=== PATIENT | female | born 1960 | race Caucasian/White ===

== ENCOUNTER 2021-11-13 01:36 | Observation (INO) ==
[2021-11-13] MEDS ORDERED: Ondansetron 4 MG/2 ML VIAL IVP PRN (04:53)
[2021-11-13] MEDS ORDERED: Naloxone 0.4 MG/ML INJ IVP PRN (04:53)
[2021-11-13] MEDS ORDERED: Melatonin 3 MG TABLET PO PRN (04:53)
[2021-11-13] MEDS ORDERED: *HR* HYDROcodone/Acet 5/325 mg TABLET PO PRN (04:53)
[2021-11-13] MEDS ORDERED: Acetaminophen 325 MG TABLET PO PRN (04:53)
[2021-11-13] MEDS ORDERED: *HR* Heparin 5,000 UNIT/ML VIAL IVP PRN ×2 (04:57)
[2021-11-13] MEDS ORDERED: Perflutren Lipid Microsphere 1.3 ML in 0.9 % Sodium Chloride 8.7 ML IVP PRN (04:58)
[2021-11-13] MEDS ORDERED: Heparin 25,000UNIT/250ML 1/2NS 25,000 UNIT/250 ML IV.SOLN IVC SCH (05:00)
[2021-11-13] MEDS ORDERED: Acetaminophen/Butalbital/CaffeineTABLET PO PRN (05:01)
[2021-11-13] MEDS ORDERED: Morphine Sulfate 2 MG/ML SYRINGE IVP ONE (05:01)
[2021-11-13] MEDS ORDERED: Dextrose 4 GM Chewable Tablets PO PRN ×2 (05:02)
[2021-11-13] MEDS ORDERED: D5% in Water 1,000 ML IVC PRN (05:02)
[2021-11-13] MEDS ORDERED: *HR* Dextrose 50 % in Water (Syg) 50 ML SYRINGE IVP PRN (05:02)
[2021-11-13] MEDS ORDERED: Metoclopramide 10 MG/2 ML VIAL IVP ONE (05:15)
[2021-11-13] MEDS ORDERED: Ketorolac 30 MG/ML VIAL IVP ONE (05:15)
[2021-11-13] MEDS ORDERED: NIFEdipine XL (24 HR) 60 MG TAB.ER.24 PO SCH (05:15)
[2021-11-13] MEDS ORDERED: Ipratropium/Albuterol Neb 3 ML IH PRN (05:17)
[2021-11-13] MEDS ORDERED: Dexamethasone Sodium Phos/PF 10 MG/ML VIAL IVP ONE (05:30)
[2021-11-13 05:48] LABS: Basophils % 0.4 %; Eosinophils # 0.1 K/mcL (0.0-0.6); Eosinophils % 1.3 %; Hematocrit 42.6 % (35.3-44.9); Hemoglobin 14.7 g/dL (11.5-15.4); Immature Granulocytes % 0.3 % (0-4); Lymphocytes # 1.4 K/mcL (0.6-4.6); Lymphocytes % 20.4 %; Mean Corpuscular HGB Conc 34.5 g/dL (31.6-35.5); Mean Corpuscular Hemoglobin 30.7 pg (28.0-33.3); Mean Corpuscular Volume 88.9 fL (83.0-100.0); Monocytes # 0.4 K/mcL (0.0-1.3); Monocytes % 5.7 %; Neutrophils # 4.9 K/mcL (1.6-8.9); Platelet Count 182 K/mcL (140-400); Red Blood Count 4.79 M/mcL (3.82-4.97); Red Cell Distribution Width 13.4 % (11.5-14.5); Segmented Neutrophils % 71.9 %; White Blood Count 6.9 K/mcL (4.3-11.1)
[2021-11-13 05:55] LABS: INR 1.1; Prothrombin Time 12.4 Seconds (9.4-12.1)
[2021-11-13 05:58] LABS: Activated Partial Thrombo Time 31.2 Seconds (26.0-36.0)
[2021-11-13 07:33] LABS: Chol/HDL Ratio 3.9 (0-4.9)
[2021-11-13] MEDS ORDERED: carvediloL 6.25 MG TABLET PO SCH (08:00)
[2021-11-13 08:18] LABS: Alanine Aminotransferase 14 Units/L (7-52); Albumin 4.3 g/dL (3.5-5.7); Albumin/Globulin Ratio 1.9 (1.1-2.2); Alkaline Phosphatase 60 Units/L (34-104); Aspartate Amino Transferase 17 Units/L (13-39); BUN/Creatinine Ratio 14 (6-26); Bilirubin,Total 0.6 mg/dL (0.3-1.0); Blood Urea Nitrogen 11 mg/dL (8-23); Calcium 9.2 mg/dL (8.6-10.3); Carbon Dioxide 26 mEq/L (23-29); Chloride 102 mEq/L (98-107); Globulin 2.3 g/dL (2.4-3.5); Glucose 114 mg/dL (70-105); Osmolality,Calculated 284 (280-300); Phosphorous 3.5 mg/dL (2.7-4.5); Potassium 3.5 mEq/L (3.5-5.1); Sodium 137 mEq/L (136-145); Total Protein 6.6 g/dL (6.4-8.9); Troponin I 0.04 ng/mL (< 0.04); eGFR For African Americans > 60 (> 60); eGFR For Non-African Americans > 60 (> 60)
[2021-11-13] MEDS ORDERED: Nicotine 14 MG PATCH.TD24 TD SCH (09:00)
[2021-11-13] MEDS ORDERED: Aspirin 81 MG TAB.CHEW PO SCH (09:00)
[2021-11-13] MEDS ORDERED: NIFEdipine XL (24 HR) 30 MG TAB.ER.24 PO SCH (09:00)
[2021-11-13] MEDS ORDERED: Fluticasone Propionate Nasal 50 MCG/SPRAY BOTTLE NS SCH (09:00)
[2021-11-13 09:38] LABS: Estimated Average Glucose 123 mg/dl; Hemoglobin A1C 5.9 %
[2021-11-13 15:07] VITALS: BP 123/66; PULSE 72; TEMP 97.8; O2SAT 94
== END 2021-11-13 15:55 | disposition home or self-care (01) ==
LOC: 3BNU → SUATTDRO 04:19
PROVIDERS: ADMIT Internal Medicine; ATTEND Registered Nurse